=== PATIENT | female | born 1950 | race Caucasian/White ===

== ENCOUNTER 2023-05-11 10:08 | Outpatient (CLI) | payer MEDICARE ==
[~2023-05-11 10:08] MED LIST: Iopamidol 370 76% 100 ML VIAL ONE
== END 2023-05-11 10:09 | disposition home or self-care (01) ==
LOC: BURCT 10:08
PROVIDERS: ATTEND Physician Assistant
DX: R91.1 Solitary pulmonary nodule (principal)
CPT/HCPCS: 71260; Q9967

== ENCOUNTER 2025-01-09 12:20 | Emergency (ER) | payer MEDICARE, OTHER | END 2025-01-09 13:46 | disposition home or self-care (01) | LOC: BURERS 12:20 | DX: S90.32XA Contusion of left foot, initial encounter (principal); W27.1XXA Contact with garden tool, initial encounter; Y92.007 Garden or yard of unspecified non-institutional (private) residence as the place of occurrence of the external cause | CPT/HCPCS: 99283 ==